=== PATIENT | female | born 1970 | race Two or more races ===

== ENCOUNTER 2018-05-11 09:18 | Emergency (ER) | payer SELFPAY ==
[~2018-05-11] VITALS: Ht 149.9 cm; Wt 59.0 kg
[2018-05-11 10:02] LABS: Basophils # (auto) 0 uL; Basophils % (auto) 0.4 % (0.0-2.0); Eosinophils # (auto) 0.3 uL; Mean Corpuscular Hemoglobin 25.5 pg (28.0-32.0); Red Cell Distribution Width 16.2 % (11.8-14.3); White Blood Cell 9.5 10^3/uL (4.4-10.8)
[2018-05-11 10:03] LABS: Eosinophils % (auto) 2.9 % (0.0-7.0); Hemoglobin 12.1 g/dL (12.2-16.2); Lymphocytes # (auto) 2.1 uL; Lymphocytes % (auto) 22.5 % (10.0-50.0); Mean Corpuscular Hgb Conc. 31.9 g/dL (32.0-36.0); Monocytes # (auto) 0.4 uL; Monocytes % (auto) 3.9 % (0.0-12.0); Neutrophils # (auto) 6.7 uL; Neutrophils % (auto) 70.3 % (37.0-80.0); Platelet Count (auto) 301 10^3/uL (140-450); Red Blood Cells 4.75 10^6/uL (4.0-5.20)
[2018-05-11 10:10] LABS: Urine Bacteria NONE SEEN /hpf (None Seen); Urine Blood 3+ /uL (Negative); Urine Budding Yeast FEW /hpf (None Seen); Urine Mucus FEW (None Seen); Urine Specific Gravity 1.025 (1.001-1.035); Urine WBC <1 /hpf (0 - 5)
[2018-05-11 10:34] LABS: Albumin 3.6 g/dL (3.4-5.0); BUN/Creatinine Ratio 11.5; Calcium 8.3 mg/dL (8.5-10.1); Potassium 3.3 mmol/L (3.5-5.1)
[2018-05-11 10:37] LABS: Bilirubin, Total 0.4 mg/dL (0.2-1.0); Total Protein 7.6 g/dL (6.4-8.2)
[2018-05-11] MEDS ORDERED: METOCLOPRAMIDE HCL 5MG/ml INJ 2ml VIAL IV ONE (11:00)
[2018-05-11] MEDS ORDERED: SODIUM CHLORIDE 0.9% 1,000 ML IV ONE (11:00)
[2018-05-11] MEDS ORDERED: KETOROLAC TROMETH 30 MG/ML 1ML VIAL IV ONE (11:00)
[2018-05-11] MEDS ORDERED: POTASSIUM EFFERVESENT TAB 25 MEQ PO ONE (12:30)
[2018-05-11 13:37] VITALS: BP 119/76
== END 2018-05-11 13:38 | disposition home or self-care (01) ==
LOC: ER 09:21
DX: N20.1 Calculus of ureter (principal); N13.30 Unspecified hydronephrosis; Z98.51 Tubal ligation status; Z90.49 Acquired absence of other specified parts of digestive tract; Z88.0 Allergy status to penicillin
CPT/HCPCS: 36415; 74176; 80053; 81001; 81025; 85025; 96374; 96375; 99285; J1885; J2765; J7030